=== PATIENT | male | born 1970 | race African-American/Black ===

== ENCOUNTER 2018-10-27 10:14 | Day surgery (SDC) | payer OTHER ==
[~2018-10-27] VITALS: Ht 180.3 cm; Wt 77.3 kg
[2018-10-27 11:02] VITALS: BP 120/89; PULSE 70; TEMP 98.4
[2018-10-27 12:00] VITALS: BP 108/85; PULSE 86; TEMP 98.2
--- NOTE | 2018-10-27 12:11 | NUR ---
patient arrives from OR via cart. vs taken. alert and oriented but drowsy. at bedside, call light within reach. coffee given as requested.
[2018-10-27 12:15] VITALS: BP 120/86; PULSE 88
== END 2018-10-27 12:48 | disposition home or self-care (01) ==
LOC: SDCO 10:14
DX: D12.0 Benign neoplasm of cecum (principal); K59.00 Constipation, unspecified; F41.9 Anxiety disorder, unspecified; F32.9 Major depressive disorder, single episode, unspecified; K58.0 Irritable bowel syndrome with diarrhea; F17.210 Nicotine dependence, cigarettes, uncomplicated
CPT/HCPCS: J2250; J2704; J3010; J7030

== ENCOUNTER → 2020-01-29 | Outpatient (CLI) | payer BC | LOC: ZCOL.LAB 16:32 | DX: Z01.89 Encounter for other specified special examinations (principal) ==

== ENCOUNTER 2023-12-12 03:39 | Inpatient (IN) | payer SELFPAY ==
[~2023-12-12] VITALS: Ht 177.8 cm; Wt 71.1 kg
[2023-12-12] VITALS (7 sets, daily range): BP systolic 121–148; BP diastolic 79–82; PULSE 66–97; TEMP 98.6–99.4
[2023-12-12] MEDS ORDERED: Mag/Al Hydrox/Simeth Susp 30 ML CUP PO ONE (04:00)
[2023-12-12] MEDS ORDERED: Pantoprazole 40 MG in NS 10 ML IV ONE (04:00)
[2023-12-12] MEDS ORDERED: Ondansetron 4 MG/2 ML VIAL IV ONE (04:00)
[2023-12-12] MEDS ORDERED: Iohexol 300 - 100 ML VIAL IV ONE (04:28)
[2023-12-12] MEDS ORDERED: NS 100 ML IV SCH (04:29)
[2023-12-12 04:33] LABS: TROPONIN-I 0.01 ng/mL (0.00-0.033)
[2023-12-12 04:39] LABS: ALBUMIN 3.8 g/dL (3.5-5.0); BILIRUBIN,TOTAL 1.1 mg/dL (0.2-1.2); C-REACTIVE PROTEIN 1.47 mg/dL (0.00-0.50); CALCIUM 9.3 mg/dL (8.4-10.2); CREATININE, serum 0.81 mg/dL (0.72-1.25); POTASSIUM 3.5 mEq/L (3.5-4.5); TOTAL PROTEIN 7.5 g/dl (6.2-8.1)
[2023-12-12 04:53] LABS: BASO % 0.4 % (0.0-2.0); GRAN # 5.7 K/mm3 (1.4-6.5); GRAN % 75.9 % (42.2-75.2); HEMATOCRIT 41.8 % (42.0-52.0); HEMOGLOBIN 14.8 g/dl (13.5-18.0); LYMPH # 1.2 K/mm3 (1.2-3.4); LYMPH % 15.6 % (20.0-51.0); MEAN CELL VOLUME 87 fl (80.0-100.0); MEAN CORPUSCULAR HEMOGLOBIN 31 pg (27-31); MEAN CORPUSCULAR HGB CONC 35 g/dl (33.0-37.0); MEAN PLATELET VOLUME 11.3 fl (7.4-10.4); MONO # 0.6 K/mm3 (0.1-0.6); MONO % 7.7 % (1.7-9.3); PLATELET COUNT 163 K/mm3 (130-400); RED BLOOD COUNT 4.82 M/mm3 (4.20-5.60); REDCELL DISTRIBUTION WIDTH-CV 14.6 % (11.5-14.5)
[2023-12-12] MEDS ORDERED: NS 1,000 ML IV ONE (05:00)
[2023-12-12] MEDS ORDERED: Morphine 4 MG/ML VIAL IV ONE (05:15)
[2023-12-12] MEDS ORDERED: HYDROmorphone 0.5 MG/0.5 ML SYRINGE IV PRN (05:30)
[2023-12-12 05:55] LABS: PH 7.5 (5.0-8.5); URINE APPEARANCE CLOUDY (CLEAR/HAZY); URINE BLOOD 2+ (NEGATIVE); URINE COLOR YELLOW (YELLOW); URINE GLUCOSE NEGATIVE (NEGATIVE); URINE KETONE 3+ (NEGATIVE); URINE NITRATE NEGATIVE (NEGATIVE); URINE PROTEIN(semi-quant) 1+ (NEGATIVE)
[2023-12-12] MEDS ORDERED: NS 1,000 ML IV SCH (06:00)
[2023-12-12] MEDS ORDERED: Folic Acid 1 MG,Thiamine 200 MG in NS 1,000 ML IV ONE (06:00)
[2023-12-12] MEDS ORDERED: Ondansetron 4 MG/2 ML VIAL IV PRN (06:00)
[2023-12-12] MEDS ORDERED: LORazepam 2 MG/ML 1 ML VIAL IV PRN (06:15)
[2023-12-12] MEDS ORDERED: LORazepam 2 MG/ML 1 ML VIAL IM PRN (06:15)
[2023-12-12] MEDS ORDERED: LORazepam 1 MG TAB PO PRN (06:15)
[2023-12-12 06:38] LABS: COLLECTION METHOD CLEAN CATCH
[2023-12-12 06:40] LABS: PARTIAL THROMBOPLASTIN TIME 26.2 SECONDS (26.0-37.0); PROTHROMBIN TIME 10.9 SECONDS (9.7-12.8)
[2023-12-12 06:48] LABS: ALCOHOL(ethanol),MEDICAL < 10 mg/dL (0-10); CHOLESTEROL 237 mg/dL (0-199); CHOLESTEROL RISK RATIO 2.6; HDL CHOLESTEROL 90 mg/dL (40-60); LACTATE DEHYDROGENASE 253 U/L (125-220); LDL CHOLESTEROL 130 mg/dL; MAGNESIUM 1.6 mg/dL (1.6-2.6); PHOSPHOROUS 3.8 mg/dL (2.3-4.7)
[2023-12-12] MEDS ORDERED: cefTRIAXone 1 G in Water For Injection,Sterile 10 ML IV SCH (07:00)
[2023-12-12 07:43] LABS: TRICYCLIC ANTIDEPRESS URINE NEGATIVE (NEGATIVE)
[2023-12-12] MEDS ORDERED: Multivitamin TAB PO SCH (08:00)
[2023-12-12] MEDS ORDERED: Thiamine 100 MG TAB PO SCH (09:00)
[2023-12-12] MEDS ORDERED: Folic Acid 1 MG TAB PO SCH (09:00)
--- NOTE | 2023-12-12 09:59 | NUR ---
Initial visit; Patient waiting for nurse though thanked Paperhanger Assistant for coming in and wishing him God's blessings. He offered the same to Paperhanger Assistant.
--- NOTE | 2023-12-12 10:18 | NUR ---
forestry conservation worker met with pt to discuss discharge planning. Pt reports he lives alone in [place]. He reports to not have a PCP, but was open to the PCP list. ANGELIA provided this and information on the [facility]. He reports to not go to the free clinic and does not have follow-up appointments. He states he obtains medications from [facility] with no difficulities. SW provided PCP list of providers and told him to call SW if he needs assistance. Pt reports to be independent with ADLS and uses no DME. He states his contact as his mother, Monica Bose [phone]. Pt does not have a DPOA-HC and declines one at this time. Pt is listed as self pay, but informed ANGELIA he has [employer] insurance through a job. He could not provide the card at this time. ANGELIA informed [facility] CM team and financial advisors. Discharge plan: home
--- NOTE | 2023-12-12 11:20 | NUR ---
D: Initial visit: Personal Development Coach stopped by room on rounds. A: Pt was resting and content. Pt has no needs right now. Pt appreciated the visit. P: Personal Development Coach informed pt that if he needed anything from the mobility specialist area to let his nurse know. Personal Development Coach will follow up as needed.
--- NOTE | 2023-12-12 21:33 | NUR ---
patient lying in bed, alert and oriented x4. denies chest pain and shortness of breath. reports pain in upper abd rated 7/10, dilaudid given per request. IV in LF is patent, site is clean dry and intact with NS running at 150 ml/hr. no skin abnormalities noted. pt has no further needs, questions, or concerns at this time. ambulating with steady gait, call light within reach. will continue to monitor.
[2023-12-13] VITALS (12 sets, daily range): BP systolic 114–129; BP diastolic 72–84; PULSE 59–73; TEMP 98.3–99.2
--- NOTE | 2023-12-13 07:49 | NUR ---
Patient alert and oriented x4. Patient reports epigastric pain rating it at 7/10 scale.Patient given prn for pain. shift assessment completed. call light within reach. bed at lowest position.
[2023-12-13] MEDS ORDERED: CVS SPECTRAVIT1 EA15 PO (08:31)
[2023-12-13] MEDS ORDERED: TESTOSTERONE PO (08:36)
[2023-12-13 10:27] LABS: BASO % 0.4 % (0.0-2.0); EOS # 0.1 K/mm3 (0.0-0.7); EOS % 1.6 % (0.0-4.0); GRAN # 4.1 K/mm3 (1.4-6.5); GRAN % 60.9 % (42.2-75.2); LYMPH # 1.9 K/mm3 (1.2-3.4); LYMPH % 28.7 % (20.0-51.0); MEAN CELL VOLUME 87 fl (80.0-100.0); MEAN CORPUSCULAR HGB CONC 35 g/dl (33.0-37.0); MEAN PLATELET VOLUME 10.2 fl (7.4-10.4); MONO # 0.6 K/mm3 (0.1-0.6); MONO % 8.3 % (1.7-9.3); PLATELET COUNT 145 K/mm3 (130-400); RED BLOOD COUNT 3.89 M/mm3 (4.20-5.60); REDCELL DISTRIBUTION WIDTH-CV 14.6 % (11.5-14.5)
[2023-12-13 10:33] LABS: HEMATOCRIT 33.8 % (42.0-52.0); HEMOGLOBIN 11.8 g/dl (13.5-18.0); MEAN CORPUSCULAR HEMOGLOBIN 30 pg (27-31)
[2023-12-13 10:54] LABS: ALBUMIN 2.8 g/dL (3.5-5.0); BILIRUBIN,TOTAL 0.6 mg/dL (0.2-1.2); CALCIUM 8.3 mg/dL (8.4-10.2); CREATININE, serum 0.73 mg/dL (0.72-1.25); MAGNESIUM 1.6 mg/dL (1.6-2.6); POTASSIUM 3.6 mEq/L (3.5-4.5)
[2023-12-13] MEDS ORDERED: Dextrose 50% Water 25 GM/50 ML SYRINGE IV PRN (11:45)
[2023-12-13] MEDS ORDERED: Dextrose (Glucose) 15 GM (4 x 3.75 GM) Chewable TABLET PACK PO PRN (11:45)
--- NOTE | 2023-12-13 21:18 | NUR ---
patient lying in bed, alert and oriented x4. denies chest pain and shortness of breath. reports 6/10 pain in upper abd and stomach, denies nausea, dilaudid given per request. patient able to take a shower, IV site covered, tele removed temporarily (tele ICU notified) full bed linen change performed. pt ambulating with steady gait. independent shower, new gown, tele placed back on, IV in LF patent site is clean dry and intact with NS running a 100 ml/hr. no abnormal skin findings noted. pt has no further needs, questions or concerns at this time. per request some beef broth provided. reynolds catheter in place draining yellow clear urine. call light within reach. will continue to monitor.
[2023-12-14] VITALS (7 sets, daily range): BP systolic 124–143; BP diastolic 88–95; PULSE 61–79; TEMP 98.2–99.9
[2023-12-14 06:53] LABS: BASO % 0.4 % (0.0-2.0); EOS # 0.2 K/mm3 (0.0-0.7); GRAN # 2.6 K/mm3 (1.4-6.5); GRAN % 48.4 % (42.2-75.2); HEMOGLOBIN 11.7 g/dl (13.5-18.0); LYMPH % 37.3 % (20.0-51.0); MEAN CELL VOLUME 86 fl (80.0-100.0); MEAN CORPUSCULAR HEMOGLOBIN 30 pg (27-31); MEAN CORPUSCULAR HGB CONC 36 g/dl (33.0-37.0); MEAN PLATELET VOLUME 11.2 fl (7.4-10.4); MONO # 0.6 K/mm3 (0.1-0.6); MONO % 10.5 % (1.7-9.3); PLATELET COUNT 162 K/mm3 (130-400); RED BLOOD COUNT 3.85 M/mm3 (4.20-5.60); REDCELL DISTRIBUTION WIDTH-CV 13.8 % (11.5-14.5)
[2023-12-14 06:54] LABS: HEMATOCRIT 32.9 % (42.0-52.0)
[2023-12-14 07:09] LABS: ALANINE AMINOTRANSFERASE 24 U/L (0-55); ALBUMIN 2.8 g/dL (3.5-5.0); ALKALINE PHOSPHATASE 47 U/L (40-150); ANION GAP 11 mmol/L (7-16); AST,SGOT 36 U/L (5-34); BILIRUBIN,TOTAL 0.5 mg/dL (0.2-1.2); CALCIUM 8.7 mg/dL (8.4-10.2); CHLORIDE 101 mEq/L (98-107); CREATININE, serum 0.67 mg/dL (0.72-1.25); GLUCOSE 87 mg/dL (70-99); MAGNESIUM 1.7 mg/dL (1.6-2.6); POTASSIUM 3.4 mEq/L (3.5-4.5); SODIUM 135 mEq/L (136-145); TOTAL PROTEIN 6.1 g/dl (6.2-8.1)
[2023-12-14 07:12] LABS: BLOOD UREA NITROGEN < 5 mg/dL (8-26)
--- NOTE | 2023-12-14 08:14 | NUR ---
PT RESTING IN BED WITH PAIN /10 IN EPPER ABDOMEN, PAIN MEDICATION PROVIDED AT THIS TIME. STEADY GAIT AROUND ROOM INDEPENDENTLY. BELL CATHETER TO DEPENEDENT DRAINAGE. PT COMPLAINS OF SLIGHT INCREASE OF PAIN AFTER CLEAR LIQUID BREAKFAST. DIET ADVANCED TO BLAND PER DR ORDERS. WILL CONTINUE TO MONITOR.
[2023-12-14] MEDS ORDERED: FOLIC ACID 11 MG/TA1 PO (11:27)
[2023-12-14] MEDS ORDERED: PROTONIX 40MG T40 MG PO (11:27)
[2023-12-14] MEDS ORDERED: ZOFRAN 4MG T4 MG/TAB PO (11:27)
[2023-12-14] MEDS ORDERED: THIAMINE 1100 MG/TAB PO (11:27)
[2023-12-14] MEDS ORDERED: FLOMAX 0.40.4 MG/CAP PO (11:28)
[2023-12-14] MEDS ORDERED: AMOXICILLIN 8751 TAB PO (11:31)
[2023-12-14] MEDS ORDERED: ROXICODONE 55 MG/TAB PO (11:31)
[2023-12-14] MEDS ORDERED: Amoxicillin/Clavulanate K+ 875/125 MG TAB PO ONE (11:45)
--- NOTE | 2023-12-14 13:03 | NUR ---
SISSY PROVIDED TO PT. DISCUSSED FOLLOW UP APPOINTMENTS, [facility] RUEDA, AND NEW MEDICAITONS INCLUDING PURPOSE AND FREQUENCY. IV REMOVED. BELL CATHETER PRIMED AND PULLED. PT UNABLE TO URINATE AND STRAIGHT CATHED HIMSELF, PT REPORTS THIS HIS NORMAL URINATION ROUTINE. PT ESCORTED OUT OF BUILDING AT THIS TIME WILL ALL BELONGINGS.
--- NOTE | 2023-12-14 14:15 | NUR ---
Car Examiner attended clinical rounds with the team and patient to discharge home today. SW met with patient to discuss follow up at [facility] and patient is agreeable to this. SW made patient an appointment for 01/04/24 at [facility] and faxed records to [facility]. Discharge Plan; Home
== END 2023-12-14 13:07 | disposition home or self-care (01) | DRG 439 ==
LOC: COL.ER 03:39 → MEDICAL 05:57
PROVIDERS: Emergency Medicine; Nurse Practitioner Family; Physician Assistant; ADMIT Internal Medicine
DX: K85.20 Alcohol induced acute pancreatitis without necrosis or infection (principal); E87.20 Acidosis, unspecified; N39.0 Urinary tract infection, site not specified; F17.210 Nicotine dependence, cigarettes, uncomplicated; F10.10 Alcohol abuse, uncomplicated; N40.1 Benign prostatic hyperplasia with lower urinary tract symptoms; R33.8 Other retention of urine; R94.31 Abnormal electrocardiogram [ECG] [EKG]; N31.9 Neuromuscular dysfunction of bladder, unspecified; I07.1 Rheumatic tricuspid insufficiency; B95.4 Other streptococcus as the cause of diseases classified elsewhere
CPT/HCPCS: A4314; C9113; J0696; J1170; J1650; J2270; J2405; J3411; J7030; Q9967

== ENCOUNTER 2024-06-13 02:30 | Emergency (ER) | payer SELFPAY ==
[~2024-06-13] VITALS: Ht 180.3 cm; Wt 77.3 kg
[~2024-06-13 02:30] MED LIST: AMOXICILLIN 8751 TAB PO; CVS SPECTRAVIT1 EA15 PO; FLOMAX 0.40.4 MG/CAP PO; FOLIC ACID 11 MG/TA1 PO; PROTONIX 40MG T40 MG PO; ROXICODONE 55 MG/TAB PO; TESTOSTERONE PO; THIAMINE 1100 MG/TAB PO; ZOFRAN 4MG T4 MG/TAB PO
[2024-06-13 02:44] VITALS: TEMP 98.4
[2024-06-13] MEDS ORDERED: CEPHALEXIN500 M1 PO (04:06)
[2024-06-13] MEDS ORDERED: Cephalexin 500 MG CAP PO ONE (04:15)
[2024-06-13 04:20] VITALS: BP 129/84; PULSE 79
== END 2024-06-13 04:20 | disposition home or self-care (01) ==
LOC: COL.ER 02:30
DX: S02.32XA Fracture of orbital floor, left side, initial encounter for closed fracture (principal); S02.2XXA Fracture of nasal bones, initial encounter for closed fracture; S02.19XA Other fracture of base of skull, initial encounter for closed fracture; S02.832A Fracture of medial orbital wall, left side, initial encounter for closed fracture; F17.210 Nicotine dependence, cigarettes, uncomplicated; Y04.8XXA Assault by other bodily force, initial encounter